=== PATIENT | male | born 1970 | race Caucasian/White ===

== ENCOUNTER 2017-02-02 15:04 | Outpatient (CLI) | payer OTHER ==
[2017-02-02 17:41] LABS: Hematocrit 44.8 % (42.0-52.0); Mean Platelet Volume 8.1 fL (7.4-10.4); Red Blood Cell (RBC) Count 4.77 mill/uL (4.70-6.10); White Blood Cell (WBC) Count 7.2 thou/uL (4.8-10.8)
== END 2017-02-02 15:05 | disposition home or self-care (01) ==
LOC: LABBT 15:04
PROVIDERS: ATTEND Orthopaedic Surgery
DX: Z01.812 Encounter for preprocedural laboratory examination (principal); S83.242A Other tear of medial meniscus, current injury, left knee, initial encounter
CPT/HCPCS: 85027; 93005; 93010

== ENCOUNTER 2017-02-03 05:47 | Day surgery (SDC) | payer OTHER ==
[2017-02-02 15:28] VITALS: BMI 48.8
[2017-02-03] MEDS ORDERED: Fentanyl 100 MCG/2 ML VIAL ONE ×2 (06:30→08:26)
[2017-02-03] MEDS ORDERED: Midazolam HCl 2 mg/2 ml Vial ONE (06:30)
[2017-02-03] MEDS ORDERED: Bupivacaine HCl 0.5%/Epinephrine 1:200,000/PF 30 ml Vial ONE (06:49)
[2017-02-03] MEDS ORDERED: Lidocaine 1% (PF) 30 ML VIAL ONE (06:49)
[2017-02-03] MEDS ORDERED: Lidocaine 1% PF 5 ML VIAL ONE (07:18)
[2017-02-03] MEDS ORDERED: Dexamethasone 20 MG/5 ML VIAL ONE (07:18)
[2017-02-03] MEDS ORDERED: Ondansetron HCl/PF 4 MG/2 ML Vial ONE (07:18)
[2017-02-03] MEDS ORDERED: Metoclopramide HCl 10 MG/2 ML VIAL ONE (07:18)
[2017-02-03] MEDS ORDERED: Ketorolac Tromethamine 30 MG/ML VIAL ONE (07:18)
[2017-02-03] MEDS ORDERED: Propofol 200 MG/20 ML VIAL ONE (07:18)
--- NOTE | 2017-02-03 09:39 | OP ---
DATE OF PROCEDURE: 02/03/2017 PREOPERATIVE DIAGNOSES: Complex tear medial meniscus with full thickness cartilage loss medial compartment, and bone ontusion and chondromalacia patella. POSTOPERATIVE DIAGNOSES: 1. Left complex medial meniscus tear. 2. Grade 3 trochlear groove chondromalacia, grade 2-3 medial tibial plateau and grade 2 medial femur. PROCEDURE: Medial meniscus debridement. STAFF: Mat Mercado M.D. POWDER MIXER: None. ANESTHESIA: Subha; the patient received LMA. ESTIMATED BLOOD LOSS: 30 mL. TOURNIQUET TIME: 19 minutes. ANTIBIOTICS: Ancef. COMPLICATIONS: None. HISTORY OF PRESENT ILLNESS: Mr. Patino is a 46-year-old male who presented to me after injuring his knee back in June, at work and continued to have pain, had injection with a month relief. The patient had a complex tear. I discussed with him that given his early arthritic changes that sometimes these can continue to progress and have more pain afterwards. I discussed the risks and benefits of surgery to include pain, scar, bleeding, infection, damage to vital structures, decreased range of motion or strength, arthritis, nonunion, arthritis, need for further surgeries, loss of life or limb. He understood the risks and benefits and elected to proceed. PROCEDURE IN DETAIL: Time out was performed designating his left lower extremity as the operative site based on sight, consents, markings. After timeout, the patient's tourniquet was brought up and left up for 19 minutes. Anterolateral and anteromedial portal were placed. I placed 30 mL of Marcaine 0.25% intraarticularly before proceeding with the procedure which was flushed out after I placed my scope. I then did my diagnostic exam. The ACL was intact. PCL was intact. The chondromalacia was grade 3 in the trochlear groove , the patient had no massive osteophytes noted medially or laterally, had no tear in the lateral compartment. The patient had no loose bodies that I noted. The patient's medial compartment, he had a complex medial meniscus tear which was debrided back to stable remnant. There was some grade 2 changes on the tibia as well as grade 2 changes noted on the femur. After completion of this, I washed the knee, I put 25 mL lidocaine subcutaneous in the portal sites as well as in the knee. The patient will be weightbearing as tolerated. I will follow up with him in 2 weeks for suture removal. [facility]
== END 2017-02-03 10:10 | disposition home or self-care (01) ==
LOC: SDC 05:47
PROVIDERS: ATTEND Orthopaedic Surgery
PROC: 0SBD4ZZ Excision of Left Knee Joint, Percutaneous Endoscopic Approach (ICD-10-PCS; principal; 2017-02-03)
DX: S83.232A Complex tear of medial meniscus, current injury, left knee, initial encounter (principal); F10.10 Alcohol abuse, uncomplicated; M94.262 Chondromalacia, left knee; I10 Essential (primary) hypertension; F17.200 Nicotine dependence, unspecified, uncomplicated; E66.01 Morbid (severe) obesity due to excess calories; M19.90 Unspecified osteoarthritis, unspecified site; Z68.42 Body mass index [BMI] 45.0-49.9, adult; Z79.1 Long term (current) use of non-steroidal anti-inflammatories (NSAID); Z79.899 Other long term (current) drug therapy; Z90.89 Acquired absence of other organs; Z98.890 Other specified postprocedural states; Z86.59 Personal history of other mental and behavioral disorders; Z86.19 Personal history of other infectious and parasitic diseases
CPT/HCPCS: 96374; G8978-GP-CL; G8979-GP-CL; G8980-GP-CL; J0131; J0670; J1100; J1833; J1885; J2001; J2250; J2405; J2704; J2765; J3010